=== PATIENT | male | born 1950 ===

== ENCOUNTER 2018-07-09 13:29 | Outpatient (CLI) | payer OTHER ==
[~2018-07-09 13:29] MED LIST: ACETAMINOPHEN-1 EAC2 PO; AMARYL PO; ASA81 MG PO; CATAPRES0.1 MG PO; CLONAZEPAM1 MG PO; COLACE100 MG PO; COZAAR100 MG PO; DOCUSATE SODIU100 MG PO; NORVASC10 MG PO; PERCOCET 5-3251 EACH PO; SYNTHROID75 MCG PO
== END 2018-07-09 13:43 | disposition home or self-care (01) ==
LOC: SONOGRAMA 13:29 → MAMO-SONO 14:15
DX: M25.512 Pain in left shoulder (principal)